=== PATIENT | male | born 1955 | race Caucasian/White ===

== ENCOUNTER 2025-04-23 05:42 | Day surgery (SDC) | payer MEDICARE, OTHER ==
[2025-04-22 14:45] VITALS: BMI 31.3
[2025-04-23] MEDS ORDERED: Thrombin 5000 UNITS/5 ML VIAL ONE (06:13)
[2025-04-23] MEDS ORDERED: HYDROmorphone 0.5 MG/0.5 ML SYRINGE ONE ×3 (06:24→09:49)
[2025-04-23] MEDS ORDERED: SUGAMMADEX SODIUM 200 MG/2 ML VIAL ONE (06:24)
[2025-04-23] MEDS ORDERED: CEFAZOLIN 2 GM VIAL ONE (06:26)
[2025-04-23] MEDS ORDERED: Rocuronium Bromide 10 MG/ML (10ML VIAL) ONE (06:30)
[2025-04-23] MEDS ORDERED: fentaNYL PF 100 MCG/2 ML SYRINGE ONE (06:30)
[2025-04-23] MEDS ORDERED: Ondansetron PF 4 MG/2 ML Vial ONE (06:30)
[2025-04-23] MEDS ORDERED: PROPOFOL 20 ML ONE (06:30)
[2025-04-23] MEDS ORDERED: PHENYLEPHRINE-NS 100 MCG/ML 10 ML SYRINGE ONE (07:40)
[2025-04-23] MEDS ORDERED: PACU-Morphine 4MG/ML VIAL SLOW IVP PRN (08:52)
[2025-04-23] MEDS ORDERED: Bacitracin Zinc Ointment 30 gm TUBE ONE (09:07)
[2025-04-23] MEDS ORDERED: HYDROcodone/Acetaminophen 10/325 mg Tablet ONE (10:17)
== END 2025-04-23 12:47 | disposition home or self-care (01) ==
LOC: SDC 05:42
PROVIDERS: ATTEND Neurological Surgery
PROC: 01NB0ZZ Release Lumbar Nerve, Open Approach (ICD-10-PCS; principal; 2025-04-23)
PROC: 0SB20ZZ Excision of Lumbar Vertebral Disc, Open Approach (ICD-10-PCS; 2025-04-23)
DX: M48.061 Spinal stenosis, lumbar region without neurogenic claudication (principal); M51.16 Intervertebral disc disorders with radiculopathy, lumbar region; I10 Essential (primary) hypertension; F17.290 Nicotine dependence, other tobacco product, uncomplicated; Z79.899 Other long term (current) drug therapy
CPT/HCPCS: 63047; 63048; J0171; J0665; J1100; J1171; J2405; J2704; J3010; J3370